=== PATIENT | female | born 1985 | race Caucasian/White ===

== ENCOUNTER 2016-11-24 17:59 | Emergency (ER) | payer OTHER ==
[~2016-11-24] VITALS: Ht 157.5 cm; Wt 59.4 kg
[~2016-11-24 17:59] MED LIST: CLONAZEPAM0.5 MG PO; COMPAZINE10 MG PO; FIORICET 50-301 EACH PO; FIORICET WI1 CAPSULE PO; KEPPRA1000 MG PO; KEPPRA250 MG PO; KEPPRA500 MG PO; KEPPRA750 MG PO; LAMOTRIGINE25 MG PO; MIRENA52 MG IY; NOHOMEMEDS; PROZAC20 MG PO; TIZANIDINE HCL4 MG PO; TRAZODONE HCL50 MG PO; ZOFRAN4 MG PO
[2016-11-24 18:47] LABS: HEMATOCRIT 39.8 % (36.0-46.0); MCH 28.9 PG (29.0-34.0); MCHC 33.2 G/DL (30.0-36.0); MCV 87.1 FL (83-99); MEAN PLAT.VOLUME 10.1 uM^3 (9.5-12.4); PLATELET COUNT 236 K/uL (156-360); RBC DIS.WIDTH-CV 12.6 % (11.8-14.6); RBC DIS.WIDTH-SD 40.3 % (39-53); RED BLOOD COUNT 4.57 M/uL (3.80-5.20); WHITE BLOOD COUNT 9.7 K/uL (4.1-10.2)
[2016-11-24 18:58] LABS: CHLORIDE 106 mEq/L (99-109); POTASSIUM 3.6 mEq/L (3.7-5.4); SODIUM 137 mEq/L (136-147)
[2016-11-24 19:00] LABS: GLUCOSE 84 mg/dL (70-99)
[2016-11-24 19:02] LABS: ANION GAP 10 MEQ/L (2-14)
[2016-11-24 19:02] LABS: ADD MIUA? YES; BILIRUBIN NEGATIVE; BLOOD NEGATIVE; COLOR YELLOW ((YELLOW)); GLUCOSE (STRIP) NEGATIVE; KETONES 80; LEUKOCYTES TRACE; NITRITE NEGATIVE; PROTEIN (STRIP) 30; SPECIFIC GRAVITY 1.024 (1.000-1.030); UROBILINOGEN 0.2 MG/DL (0.2-1.0)
[2016-11-24 19:04] LABS: GFR ESTIMATE (CALCULATED) > 59 mL/min/
[2016-11-24 19:05] LABS: UREA NITROGEN (BUN) 8 mg/dL (9-23)
[2016-11-24 19:20] LABS: CASTS NONE SEEN /LPF; EPITHELIAL CELLS 3+ /HPF; MUCUS 3+ /LPF
[2016-11-24 19:21] LABS: BACTERIA 2+ /HPF; RED BLOOD CELLS NONE SEEN /HPF (0-5); UCUL ADDED? NO; WHITE BLOOD CELLS 0-5 /HPF (0-5)
[2016-11-24 19:38] LABS: QUANTITATIVE HCG 106998.2 MIU/ML
[2016-11-24 21:24] VITALS: BP 100/69
== END 2016-11-24 21:26 | disposition home or self-care (01) ==
LOC: RME 17:59 → EME 17:59 → RME 21:26
PROVIDERS: Physician Assistant
DX: O26.91 Pregnancy related conditions, unspecified, first trimester (principal); Z3A.08 8 weeks gestation of pregnancy; O99.341 Other mental disorders complicating pregnancy, first trimester; F32.9 Major depressive disorder, single episode, unspecified
CPT/HCPCS: 76801; 80048; 81003; 84702; 85027; 87086; 99281; 99284

== ENCOUNTER 2017-01-09 13:13 | Inpatient (IN) | payer OTHER ==
[~2017-01-09] VITALS: Ht 162.6 cm; Wt 61.8 kg
[2017-01-09 14:12] LABS: HEMATOCRIT 32.2 % (36.0-46.0); MCH 30.1 PG (29.0-34.0); MCHC 34.2 G/DL (30.0-36.0); MEAN PLAT.VOLUME 10.5 uM^3 (9.5-12.4); PLATELET COUNT 199 K/uL (156-360); RBC DIS.WIDTH-CV 12.6 % (11.8-14.6); RED BLOOD COUNT 3.66 M/uL (3.80-5.20); WHITE BLOOD COUNT 10.3 K/uL (4.1-10.2)
[2017-01-09 14:47] LABS: CHLORIDE 110 mEq/L (99-109); POTASSIUM 3.7 mEq/L (3.7-5.4); SODIUM 135 mEq/L (136-147)
[2017-01-09 14:49] LABS: GLUCOSE 78 mg/dL (70-99)
[2017-01-09 14:50] LABS: ANION GAP 9 MEQ/L (2-14)
[2017-01-09 14:52] LABS: GFR ESTIMATE (CALCULATED) > 59 mL/min/
[2017-01-09 14:53] LABS: UREA NITROGEN (BUN) 5 mg/dL (9-23)
[2017-01-09] MEDS ORDERED: KEPPRA750 MG PO (19:16)
[2017-01-09] MEDS ORDERED: VIMPAT150 MG PO (19:16)
[2017-01-09 19:57] LABS: BILIRUBIN NEGATIVE; BLOOD NEGATIVE; COLOR STRAW ((YELLOW)); GLUCOSE (STRIP) NEGATIVE; KETONES 80; LEUKOCYTES NEGATIVE; NITRITE NEGATIVE; PROTEIN (STRIP) NEGATIVE; SPECIFIC GRAVITY 1.011 (1.000-1.030); UROBILINOGEN 0.2 MG/DL (0.2-1.0)
[2017-01-09 19:59] LABS: ADD MIUA? NO; UCUL ADDED? NO
[2017-01-09 23:18] VITALS: BP 90/52
[2017-01-10 03:15] VITALS: BP 91/50
[2017-01-10 06:37] LABS: HEMATOCRIT 29.7 % (36.0-46.0); MCH 30.5 PG (29.0-34.0); MCV 89.7 FL (83-99); MEAN PLAT.VOLUME 10.4 uM^3 (9.5-12.4); PLATELET COUNT 162 K/uL (156-360); RBC DIS.WIDTH-CV 12.9 % (11.8-14.6); RBC DIS.WIDTH-SD 42.4 % (39-53); RED BLOOD COUNT 3.31 M/uL (3.80-5.20); WHITE BLOOD COUNT 8.2 K/uL (4.1-10.2)
[2017-01-10 06:54] LABS: ALKALINE PHOSPHATASE 31 IU/L (3-129); ANION GAP 5 MEQ/L (2-14); CHLORIDE 111 MEQ/L (99-109); GFR ESTIMATE (CALCULATED) > 59 mL/min/; GLUCOSE 78 mg/dL (70-99); POTASSIUM 3.2 MEQ/L (3.7-5.4); SAMPLE HEMOLYSIS CHECK 0; SAMPLE ICTERIC CHECK 0; SAMPLE LIPEMIA CHECK 0; SODIUM 135 MEQ/L (136-147); TOTAL BILIRUBIN 0.3 MG/DL (0.0-1.0); UREA NITROGEN (BUN) 4 mg/dL (9-23)
[2017-01-10 07:15] LABS: ADD MIUA? YES; BILIRUBIN NEGATIVE; BLOOD SMALL; COLOR YELLOW ((YELLOW)); GLUCOSE (STRIP) NEGATIVE; KETONES 80; LEUKOCYTES NEGATIVE; NITRITE NEGATIVE; PROTEIN (STRIP) NEGATIVE; SPECIFIC GRAVITY 1.011 (1.000-1.030); UROBILINOGEN 0.2 MG/DL (0.2-1.0)
[2017-01-10 07:31] LABS: BACTERIA RARE /HPF; EPITHELIAL CELLS 1+ /HPF; MUCUS TRACE /LPF; WHITE BLOOD CELLS 0-5 /HPF (0-5)
[2017-01-10 07:54] VITALS: BP 96/55
[2017-01-10 11:45] VITALS: BP 95/54
[2017-01-10] MEDS ORDERED: KEPPRA1000 MG PO (12:17)
== END 2017-01-10 13:36 | disposition home or self-care (01) | DRG 781 ==
LOC: EME 13:13 → EDOF 20:56 → 2EAST 22:51
PROVIDERS: Emergency Medicine; Hospitalist
DX: O99.352 Diseases of the nervous system complicating pregnancy, second trimester (principal); G40.409 Other generalized epilepsy and epileptic syndromes, not intractable, without status epilepticus; O99.012 Anemia complicating pregnancy, second trimester; D64.9 Anemia, unspecified; O99.342 Other mental disorders complicating pregnancy, second trimester; F32.9 Major depressive disorder, single episode, unspecified; F41.9 Anxiety disorder, unspecified; Z3A.16 16 weeks gestation of pregnancy; Z91.040 Latex allergy status
CPT/HCPCS: 71010; 76801; 80048; 80053; 81003; 85027; 99281; 99285; J1953; J2060; J2405; J7030; J7050

== ENCOUNTER 2017-02-26 14:07 | Observation (INO) | payer OTHER ==
[~2017-02-26] VITALS: Ht 157.5 cm; Wt 68.5 kg
[~2017-02-26 14:07] MED LIST changes: +VIMPAT150 MG PO
[2017-02-26 15:26] LABS: EOSINOPHIL (%) 0.4 % (0-5); EOSINOPHIL COUNT 0.1 K/uL (0-0.3); HEMATOCRIT 32.6 % (36.0-46.0); IMMATURE GRANULOCYTE (%) 0.6 % (0.0-0.7); IMMATURE GRANULOCYTE COUNT 0.1 K/uL; INSTRUMENT ABS NEUTROPHIL CT 9.8 K/uL; LYMPHOCYTE COUNT 0.9 K/uL (1.0-2.8); MCH 29.3 PG (29.0-34.0); MCHC 33.1 G/DL (30.0-36.0); MCV 88.3 FL (83-99); MEAN PLAT.VOLUME 9.3 uM^3 (9.5-12.4); MONOCYTE (%) 5.1 % (3-12); MONOCYTE COUNT 0.6 K/uL (0-0.8); NEUTROPHIL (%) 86.3 % (45-76); NEUTROPHIL COUNT 9.8 K/uL (1.8-6.4); PLATELET COUNT 213 K/uL (156-360); RBC DIS.WIDTH-CV 12.8 % (11.8-14.6); RBC DIS.WIDTH-SD 41.5 % (39-53); RED BLOOD COUNT 3.69 M/uL (3.80-5.20); WHITE BLOOD COUNT 11.4 K/uL (4.1-10.2)
[2017-02-26 15:34] LABS: CHLORIDE 107 mEq/L (99-109); POTASSIUM 3.8 mEq/L (3.7-5.4); SODIUM 134 mEq/L (136-147)
[2017-02-26 15:36] LABS: GLUCOSE 84 mg/dL (70-99)
[2017-02-26 15:38] LABS: ANION GAP 8 MEQ/L (2-14)
[2017-02-26 15:39] LABS: TOTAL BILIRUBIN 0.2 mg/dL (0.0-1.0)
[2017-02-26 15:40] LABS: ALKALINE PHOSPHATASE 51 IU/L (3-129); GFR ESTIMATE (CALCULATED) > 59 mL/min/
[2017-02-26 15:41] LABS: UREA NITROGEN (BUN) 5 mg/dL (9-23)
[2017-02-26 20:14] VITALS: BP 85/49
[2017-02-26 23:06] VITALS: BP 84/47
[2017-02-27] MEDS ORDERED: FOLIC ACID1 MG PO ×2 (06:29→16:32)
[2017-02-27 08:11] VITALS: BP 90/52
[2017-02-27 13:10] VITALS: BP 94/51
[2017-02-27 14:49] VITALS: BP 84/46
[2017-02-27] MEDS ORDERED: CLONAZEPAM0.5 MG PO (16:32)
[2017-02-27] MEDS ORDERED: BUTALB-APAP-CA1 EACH PO (16:32)
[2017-02-27] MEDS ORDERED: VIMPAT50 MG PO (16:32)
[2017-02-27] MEDS ORDERED: LEVETIRACETAM500 MG PO (16:32)
== END 2017-02-27 18:05 | disposition home or self-care (01) ==
LOC: EME 14:07 → 2WEST 20:11
PROVIDERS: Emergency Medicine
DX: O99.352 Diseases of the nervous system complicating pregnancy, second trimester (principal); G40.901 Epilepsy, unspecified, not intractable, with status epilepticus; Z3A.21 21 weeks gestation of pregnancy
CPT/HCPCS: 70450; 80053; 85025; 93005; 99281; 99285; G0378; J1953; J2060; J2250; J3475; J7030; J7050

== ENCOUNTER 2017-06-27 11:50 | Outpatient (CLI) | payer OTHER ==
[~2017-06-27] VITALS: Ht 157.5 cm; Wt 71.6 kg
[~2017-06-27 11:50] MED LIST changes: +BUTALB-APAP-CA1 EACH PO; +FOLIC ACID1 MG PO; +LEVETIRACETAM500 MG PO; +VIMPAT50 MG PO
[2017-06-27 12:06] VITALS: BP 119/69
[2017-06-27] MEDS ORDERED: KEPPRA1000 MG PO (12:59)
== END 2017-06-27 13:38 | disposition home or self-care (01) ==
LOC: LDRP-OP → 2WEST 11:51 → LDRP-OP 06-29 11:20
DX: O47.1 False labor at or after 37 completed weeks of gestation (principal); O99.353 Diseases of the nervous system complicating pregnancy, third trimester; Z3A.38 38 weeks gestation of pregnancy; G40.909 Epilepsy, unspecified, not intractable, without status epilepticus; T42.6X6A Underdosing of other antiepileptic and sedative-hypnotic drugs, initial encounter; Z91.128 Patient's intentional underdosing of medication regimen for other reason; Z91.19 Patient's noncompliance with other medical treatment and regimen
CPT/HCPCS: 59025; G0378

== ENCOUNTER 2017-06-29 07:26 | Inpatient (IN) | payer OTHER ==
[~2017-06-29] VITALS: Ht 157.5 cm; Wt 70.9 kg
[2017-06-29] VITALS (34 sets, daily range): BP systolic 102–136; BP diastolic 56–83
[2017-06-29 09:19] LABS: EOSINOPHIL (%) 2.1 % (0-5); EOSINOPHIL COUNT 0.2 K/uL (0-0.3); HEMATOCRIT 32.6 % (36.0-46.0); IMMATURE GRANULOCYTE (%) 1.2 % (0.0-0.7); IMMATURE GRANULOCYTE COUNT 0.1 K/uL; INSTRUMENT ABS NEUTROPHIL CT 7.8 K/uL; LYMPHOCYTE COUNT 1.3 K/uL (1.0-2.8); MCH 28.7 PG (29.0-34.0); MCHC 31.9 G/DL (30.0-36.0); MCV 90.1 FL (83-99); MEAN PLAT.VOLUME 9.5 uM^3 (9.5-12.4); MONOCYTE (%) 7.3 % (3-12); MONOCYTE COUNT 0.7 K/uL (0-0.8); NEUTROPHIL (%) 76.6 % (45-76); NEUTROPHIL COUNT 7.8 K/uL (1.8-6.4); PLATELET COUNT 254 K/uL (156-360); RBC DIS.WIDTH-CV 13.9 % (11.8-14.6); RBC DIS.WIDTH-SD 45.3 % (39-53); RED BLOOD COUNT 3.62 M/uL (3.80-5.20); WHITE BLOOD COUNT 10.2 K/uL (4.1-10.2)
[2017-06-29 09:36] LABS: Estimated Average Glucose 120 mg/dL (70-123); HEMOGLOBIN A1c (GLYCOHEMOGLOB) 5.8 % HGB (Below 5.7)
[2017-06-30 07:01] LABS: BASOPHIL COUNT 0.1 K/uL (0-0.1); EOSINOPHIL (%) 1.5 % (0-5); EOSINOPHIL COUNT 0.2 K/uL (0-0.3); HEMATOCRIT 30.9 % (36.0-46.0); IMMATURE GRANULOCYTE (%) 0.7 % (0.0-0.7); IMMATURE GRANULOCYTE COUNT 0.1 K/uL; LYMPHOCYTE COUNT 1.5 K/uL (1.0-2.8); MCH 28.8 PG (29.0-34.0); MCV 89.8 FL (83-99); MEAN PLAT.VOLUME 9.6 uM^3 (9.5-12.4); MONOCYTE (%) 7.2 % (3-12); MONOCYTE COUNT 1.1 K/uL (0-0.8); NEUTROPHIL (%) 80.5 % (45-76); PLATELET COUNT 239 K/uL (156-360); RBC DIS.WIDTH-CV 14.1 % (11.8-14.6); RBC DIS.WIDTH-SD 45.8 % (39-53); RED BLOOD COUNT 3.44 M/uL (3.80-5.20); WHITE BLOOD COUNT 14.9 K/uL (4.1-10.2)
[2017-06-30 07:28] VITALS: BP 110/55
[2017-06-30 15:00] VITALS: BP 131/74
[2017-06-30 23:00] VITALS: BP 106/59
[2017-07-01 07:42] VITALS: BP 118/71
[2017-07-01] MEDS ORDERED: VIMPAT150 MG PO (11:30)
== END 2017-07-01 14:30 | disposition home or self-care (01) | DRG 775 ==
LOC: LDRP-OP 07:26 → 2WEST 07:27 → LDRP-OP 17:10 → 2WEST 07-01 14:30 → LDRP-OP 08-06 13:59
PROVIDERS: Advanced Practice Midwife
PROC: 10E0XZZ Delivery of Products of Conception, External Approach (ICD-10-PCS; principal; 2017-06-29)
PROC: 10907ZC Drainage of Amniotic Fluid, Therapeutic from Products of Conception, Via Natural or Artificial Opening (ICD-10-PCS; principal; 2017-06-29)
PROC: 00HU33Z Insertion of Infusion Device into Spinal Canal, Percutaneous Approach (ICD-10-PCS; 2017-06-29)
PROC: 3E0R3BZ Introduction of Anesthetic Agent into Spinal Canal, Percutaneous Approach (ICD-10-PCS; 2017-06-29)
PROC: 3E033VJ Introduction of Other Hormone into Peripheral Vein, Percutaneous Approach (ICD-10-PCS; 2017-06-29)
DX: O99.824 Streptococcus B carrier state complicating childbirth (principal); O99.354 Diseases of the nervous system complicating childbirth; G40.409 Other generalized epilepsy and epileptic syndromes, not intractable, without status epilepticus; G43.909 Migraine, unspecified, not intractable, without status migrainosus; O99.344 Other mental disorders complicating childbirth; F32.9 Major depressive disorder, single episode, unspecified; F41.9 Anxiety disorder, unspecified; O99.02 Anemia complicating childbirth; D62 Acute posthemorrhagic anemia; D50.9 Iron deficiency anemia, unspecified; O22.43 Hemorrhoids in pregnancy, third trimester; O99.214 Obesity complicating childbirth; E66.3 Overweight; Z68.25 Body mass index [BMI] 25.0-25.9, adult; Z91.14 Patient's other noncompliance with medication regimen; Z3A.39 39 weeks gestation of pregnancy; Z37.0 Single live birth
CPT/HCPCS: 59025; 83036; 85025; C1755; G0378; J1050; J2540; J3010; J7120

== ENCOUNTER 2017-07-11 12:46 | Emergency (ER) | payer OTHER ==
[~2017-07-11] VITALS: Ht 157.5 cm; Wt 65.1 kg
[2017-07-11 14:32] LABS: HEMATOCRIT 37.8 % (36.0-46.0); HEMOGLOBIN 12.4 G/DL (11.9-15.5); MCH 29.2 PG (29.0-34.0); MCHC 32.8 G/DL (30.0-36.0); MCV 88.9 FL (83-99); PLATELET COUNT 298 K/uL (156-360); RBC DIS.WIDTH-CV 13.3 % (11.8-14.6); RBC DIS.WIDTH-SD 43.9 % (39-53); RED BLOOD COUNT 4.25 M/uL (3.80-5.20); WHITE BLOOD COUNT 6.8 K/uL (4.1-10.2)
[2017-07-11 14:38] LABS: CHLORIDE 107 mEq/L (99-109); POTASSIUM 3.8 mEq/L (3.7-5.4); SODIUM 137 mEq/L (136-147)
[2017-07-11 14:40] LABS: GLUCOSE 87 mg/dL (70-99)
[2017-07-11 14:44] LABS: GFR ESTIMATE (CALCULATED) > 59 mL/min/; UREA NITROGEN (BUN) 10 mg/dL (9-23)
[2017-07-11 14:50] LABS: TROP-I INTERPRETATION NEGATIVE; TROPONIN-I < 0.01 ng/mL (0.0-0.30)
[2017-07-11 17:34] LABS: TROP-I INTERPRETATION NEGATIVE; TROPONIN-I < 0.01 ng/mL (0.0-0.30)
[2017-07-11] MEDS ORDERED: VENTOLIN HFA18 GM IH (19:06)
[2017-07-11 19:18] VITALS: BP 111/72
== END 2017-07-11 19:22 | disposition home or self-care (01) ==
LOC: EME 12:46
PROVIDERS: Physician Assistant Medical
DX: J40 Bronchitis, not specified as acute or chronic (principal); G40.909 Epilepsy, unspecified, not intractable, without status epilepticus; Z91.040 Latex allergy status
CPT/HCPCS: 71020; 71275; 80048; 84484; 85027; 85379; 87502; 87651 90; 93005; 94640; 99281; 99284; J2060; J7030